=== PATIENT | male | born 1995 | race Caucasian/White ===

== ENCOUNTER 2016-12-24 13:06 | Emergency (ER) | payer MEDICAID ==
[~2016-12-24] VITALS: Ht 182.9 cm; Wt 63.1 kg
[2016-12-24 13:10] VITALS: BP 111/72
[2016-12-24] MEDS ORDERED: DIAZEPAM 5 MG TABLET ONE (13:50)
[2016-12-24] MEDS ORDERED: KETOROLAC 30 MG/1 ML ONE (13:50)
[2016-12-24] MEDS ORDERED: DIAZEPAM 5 MG TABLET PO ONE (14:00)
[2016-12-24] MEDS ORDERED: KETOROLAC 30 MG/1 ML IM ONE (14:00)
== END 2016-12-24 14:22 | disposition home or self-care (01) ==
LOC: ED 13:36
DX: S29.012A Strain of muscle and tendon of back wall of thorax, initial encounter (principal); X58.XXXA Exposure to other specified factors, initial encounter; Y93.89 Activity, other specified; Y92.89 Other specified places as the place of occurrence of the external cause; Y99.8 Other external cause status
CPT/HCPCS: 71020; 93005; 96372; 99284; J1885